=== PATIENT | female | born 1995 | race Caucasian/White ===

== ENCOUNTER 2019-01-10 23:39 | Emergency (ER) | payer BC ==
[~2019-01-10] VITALS: Ht 172.7 cm; Wt 70.0 kg
[2019-01-10 23:43] VITALS: BP 111/75
[2019-01-11] MEDS ORDERED: BENZ-16 PO (02:45)
[2019-01-11] MEDS ORDERED: PRED20TA PO (02:45)
[2019-01-11] MEDS ORDERED: MOME220A2 INH (02:45)
== END 2019-01-11 03:13 | disposition home or self-care (01) ==
LOC: ER 23:40
DX: J06.9 Acute upper respiratory infection, unspecified (principal); J45.909 Unspecified asthma, uncomplicated; Z79.899 Other long term (current) drug therapy
CPT/HCPCS: 99283